=== PATIENT | female | born 1950 | race Caucasian/White ===

== ENCOUNTER 2020-04-14 12:09 | Emergency (ER) | payer MEDICARE, OTHER ==
[2020-04-14 13:51] LABS: BASO # 0.1 10*3/uL (0.0-0.1); BASO % 0.8 % (0.0-1.0); EOS # 1.4 10*3/uL (0.0-0.4); EOS % 18.6 % (1.0-4.0); LYMPH # 1.2 10*3/uL (1.3-4.4); LYMPH % 16.4 % (27.0-41.0); MEAN CELL VOLUME 86.4 fl (81.0-99.0); MEAN CORPUSCULAR HGB 27.4 pg (27.0-31.0); MEAN CORPUSCULAR HGB CONC 31.7 g/dl (33.0-37.0); MONO # 0.4 10*3/uL (0.1-1.0); MONO % 5.5 % (3.0-9.0); NEUT # 4.3 10*3/uL (2.3-7.9); NEUT % 58.3 % (47.0-73.0); PLATELET COUNT AUTOMATED 325 10*3/uL (130-400); RED BLOOD COUNT 4.05 10*6/uL (4.10-5.10); RED CELL DISTRI WIDTH 15.4 % (0-14.5); WHITE BLOOD COUNT 7.4 10*3/uL (4.8-10.8)
[2020-04-14 13:53] LABS: BILIRUBIN NEGATIVE (NEGATIVE); BLOOD NEGATIVE (NEGATIVE); CLARITY CLEAR (CLEAR); COLOR YELLOW (YELLOW); GLUCOSE NEGATIVE (NEGATIVE); KETONE TRACE (NEGATIVE); LEUKO ESTERASE NEGATIVE (NEGATIVE); NITRITE NEGATIVE (NEGATIVE); PH 7.5 (5.0-9.0); UROBILINOGEN 0.2 E.U./dl (0.2-1.0)
[2020-04-14 13:59] LABS: URINE AMPHETAMINES < 1000 (1000ng/ml); URINE BARBITURATES < 200 (200ng/ml); URINE BENZODIAZEPINES < 200 (200ng/ml); URINE CANNABINOIDS (THC) < 50 (50ng/ml); URINE COCAINE < 300 (300ng/ml); URINE METHADONE < 300 (300ng/ml); URINE OPIATES < 300 (300ng/ml); URINE PHENCYCLIDINE < 25 (25ng/ml)
[2020-04-14 14:00] LABS: EPITHELIAL CELLS 0-2; WBC 0-2 wbc/hpf (0-5)
[2020-04-14 14:06] LABS: ACETAMINOPHEN (TYLENOL) < 5.0 ug/ml (10-30); ALBUMIN 4.1 gm/dl (3.1-4.5); ALKALINE PHOSPHATASE 64 U/L (45-117); BUN 19 mg/dl (7-24); CHLORIDE 107 mmol/L (98-107); CREATININE 1.07 mg/dL (0.55-1.02); ETHYL ALCOHOL < 3.0 mg/dl (<3); POTASSIUM 3.8 mmol/L (3.5-5.1); SGOT/AST 16 IU/L (3-35); SGPT/ALT 26 U/L (12-78); SODIUM 139 mmol/L (136-145); TOTAL PROTEIN 7.9 gm/dL (6.4-8.2)
[2020-04-14] MEDS ORDERED: NOVOLOG10 ML SC (15:59)
[2020-04-14] MEDS ORDERED: ARICEPT5 M1 PO (16:00)
[2020-04-14] MEDS ORDERED: LANTUS SOL100 UNIT/1 SC (16:00)
[2020-04-14] MEDS ORDERED: ABILIFY5 MG PO (16:01)
[2020-04-14] MEDS ORDERED: ATORVASTATIN CA80 M1 PO (16:01)
[2020-04-14] MEDS ORDERED: OMEPRAZOLE MAGN20 MG PO (16:01)
[2020-04-14] MEDS ORDERED: LISINOPRIL30 MG PO (16:02)
[2020-04-14] MEDS ORDERED: FENOFIBRATE160 MG PO (16:03)
[2020-04-14] MEDS ORDERED: JANUVIA100 MG PO (16:03)
== END 2020-04-14 17:20 | disposition home health service (06) ==
LOC: ED 12:09
PROVIDERS: Physician Assistant
DX: Z02.89 Encounter for other administrative examinations (principal); I10 Essential (primary) hypertension; K21.9 Gastro-esophageal reflux disease without esophagitis; E11.9 Type 2 diabetes mellitus without complications; Z79.4 Long term (current) use of insulin; Z79.899 Other long term (current) drug therapy

== ENCOUNTER 2020-04-14 15:35 | Inpatient (IN) | payer MEDICARE, OTHER ==
[~2020-04-14] VITALS: Ht 160 cm; Wt 62.6 kg
[2020-04-14] MEDS ORDERED: NOVOLOG10 ML SC (15:59)
[2020-04-14] MEDS ORDERED: ARICEPT5 M1 PO (16:00)
[2020-04-14] MEDS ORDERED: LANTUS SOL100 UNIT/1 SC (16:00)
[2020-04-14] MEDS ORDERED: ATORVASTATIN CA80 M1 PO (16:01)
[2020-04-14] MEDS ORDERED: OMEPRAZOLE MAGN20 MG PO (16:01)
[2020-04-14] MEDS ORDERED: ABILIFY5 MG PO (16:01)
[2020-04-14] MEDS ORDERED: LISINOPRIL30 MG PO (16:02)
[2020-04-14] MEDS ORDERED: JANUVIA100 MG PO (16:03)
[2020-04-14] MEDS ORDERED: FENOFIBRATE160 MG PO (16:03)
--- NOTE | 2020-04-14 17:07 | NUR ---
PER RIZWANA GOMEZ RN, PT COVID TEST IS NEGATIVE.
[2020-04-14 17:34] VITALS: BP 149/82
[2020-04-14 17:36] VITALS: BP 149/82
--- NOTE | 2020-04-14 18:06 | NUR ---
ELIZABETH PEREZ a 69 year old F admitted via wheel chair from the EMERGENCY ROOM as a voluntary admission. Arrived on unit at 1725 . ALLERGIES: NKA . Vital signs are: [id number] 149/82-97%RA. The client signed the following forms with stated understanding: Authorization For The Release of Medical Information, Clothing List, Consent to Voluntary Admission and Hospitalization, Consent and Release Forms/Receipt of Rights, Acknowledgement of Advance Directive Information, Behavioral Health Consent Form, and Informed Consent of Medications. Admitted under the services of Dr. JET LINDSEY,[facility]. A search was conducted and hazardous articles were removed. Client was oriented to the unit. SCOTTIE VALENTE PT ALERT TO PERSON, PLACE, TIME AND SITUATION. PT VOICES FEELING DEPRESSED AND SAD. PT DENIES ANY SUICIDAL THOUGHTS OR BEHAVIORS, VERBALLY CONTRACTS FOR SAFETY AT THIS TIME. PT AMBUALTORY THROUGHOUT UNIT, GAIT STEADY. PT CONTINENT OF BOWEL AND BLADDER. NONE WOUNDS NOTED PER PT.
--- NOTE | 2020-04-14 18:11 | NUR ---
SPOKE WITH DR GOODMAN AT [phone] RE: CONSULT NEEDED FOR MEDICAL MANAGEMENT, PER DR BOOTH CONSULT UNDER DR WELLS.
[2020-04-14 20:00] VITALS: BP 148/76
--- NOTE | 2020-04-14 21:39 | NUR ---
Patient alert and oriented to person,place,time and stiuation. Mood calm,cooperative and pleasant. Patient states "I am very sad and depressed". Patient denies any SI/HI at this time. Patient is able to verbally contract for safety. Patient denies any hallucinations at this time. No overt s/s of any responding to internal stimuli noted. Patient compliant with HS medications without any difficulty. Provided 1:1 for emotional support. Plan to continue to encourage medication compliance. Also continue to provide emotional support. Will also continue to monitor moods/behaviors. Q 15 minute safety checks continued and maintained. See [facility] flowsheet for further documentation.
--- NOTE | 2020-04-15 00:18 | NUR ---
24 HR chart check completed.
--- NOTE | 2020-04-15 05:42 | NUR ---
Patient slept approx. 8 hours throughout shift. Q 15 minute safety checks continued and maintained.
[2020-04-15 06:56] LABS: THYROID STIM HORMONE (HS) 1.36 uIU/ml (0.358-4.75)
[2020-04-15 07:30] VITALS: BP 124/68
[2020-04-15 07:38] LABS: VITAMIN D, 25-HYDROXY 31.4 ng/mL (30-100)
--- NOTE | 2020-04-15 07:45 | NUR ---
DR LOERA CALLED IN AND STATED TO MAKE SURE PT EATS BREAKFAST DUE TO HER GLUCOSE BEING 68. ADVISED THAT PT IS CURRENTLY EATING.
--- NOTE | 2020-04-15 08:42 | NUR ---
DR WELLS ON UNIT TO ASSESS PT, UPDATE PROVIDED.
--- NOTE | 2020-04-15 10:49 | NUR ---
Patient expressed an overwhelming sense of sadness while meeting this AM. Pt spoke of her SA by OD two weeks ago. When asked, pt confirmed that she has struggled with depression throughout her adult life. Pt believes that the depression is linked to life stressors/losses. Discussed tools that pt has used in the past to assist in relieving pt's depressed mood. Pt stated that she feels that the medications need to begin working to relieve her depression first before anything else can help her. Pt is currently struggling with the of her close friend which took place a few weeks ago. Pt stated that it is particularly hard because the evening before her friend's , pt commented to her friend that her friend looked like . Pt stated that she regrets saying that. Discussed this further. Pt is current with Virginia Gay NP at [facility] and has Mariana Duran as her test case developer. Pt is not currently in counseling. Discussed this and pt is agreeable to resuming counseling services upon [facility] discharge.
--- NOTE | 2020-04-15 13:38 | NUR ---
P: PT ISOALTIVE TO SELF/ROOM THROUGHOUT THE DAY. PT MOOD IS DEPRESSED, STATING "I'M SOMEWHERE BETWEEN DEPRESSED AND HAPPY." I: PROVIDE EMOTIONAL SUPPORT AND 1:1 FOR PT TO VOICE FEELINGS, ENCOURAGE MED COMPLIANCE AND PROVIDE MED EDUCATION, ENCOURAGE GROUP PARTICIPATION AND SOCIALIZATION. R: PT ALERT TO PERSON, PLACE, TIME AND SITUATION. PT MED COMPLIANT WITHOUT DIFFICULTY, MED EDUCATION PROVIDED. PT CALM, MOOD REMAINS DEPRESSED. PT CONTINUES TO BE ISOLATIVE TO SELF/ROOM THROUGHOUT THE DAY, ONLY COMING OUT OF THE DINING ROOM FOR MALS. NO HALLUCINATIONS OR DELUSIONS NOTED. PT DENIES ANY SUICIDAL THOUGHTS OR BEHAVIORS AT THIS TIME, VERBALLY CONTRACTS FOR SAFETY. PT AMBULATORY THROUGHOUT UNIT, GAIT STEADY. PT CONTINENT OF BOWEL AND BLADDER. P: MONITOR PT BEHAVIORS ON Q15 MIN SAFETY CHECKS, ENCOURAGE MED COMPLIANCE AND PROVIDE MED EDUCATION, ENCOURAGE GROUP PARTICIPATION AND SOCIALIZATION, PROVIDE EMOTIONAL SUPPORT AND 1:1 FOR PT TO VOICE FEELINGS.
[2020-04-15 20:00] VITALS: BP 136/60
--- NOTE | 2020-04-15 20:00 | NUR ---
Patient sitting in dining room with peers, watching tv. Patient voices no complaints at this time. No s/s of distress noted; Resps even and unlabored on room air. Q15 minute checks maintained for safety.
--- NOTE | 2020-04-15 22:00 | NUR ---
P- DEPRESSED MOOD. ISOLATIVE TO SELF/ROOM. I- ASSESS MOOD, ORIENTATION, SI/HI, INTENT OR PLAN, HALLUCINATIONS, DELUSIONS, PARANOIA, OR PAIN. PROVIDE MEDICATIONS PRESCRIBED ON TIME WITH EDUCATION ON EACH. 1:1 THERAPEUTIC INTERACITON WITH EMOTIONAL SUPPORT AND VENTILATION OF FEELINGS PROVIDED. EDUCATE ON COPING SKILLS AND ENCOURAGE TO USE THEM WHEN NEEDED. OFFER HS SNACK. R- PATIENT IS ALERT AND ORIENTED X4. PATIENT STATES THAT SHE IS STILL DEPRESSED BUT IS GETTING BETTER. DENIES SI/HI, INTENT OR PLAN, HALLUCINATIONS OR PAIN. NO S/S OF INTERACTING WITH INTERNAL STIMULI. NO S/S OF PARANOIA OR DELUSIONAL THOUGHT PROCESS. NO S/S OF DISTRESS NOTED. RESPS EVEN AND UNLABORED ON ROOM AIR. PT MED COMPLIANT. PT STATES THAT SHE HAS USED COPING SKILLS IN THE PAST BUT HAS NOT BEEN USING THEM LATELY. PT STATES THAT SHE IS GOING TO START UTILIZING THEM AGAIN SO SHE CAN START FEELING BETTER. PT DID NOT WANT TO ELLABORATE ON WHY SHE WAS FEELING DEPRESSED. 1:1 INTERACTION EFFECTIVE, PROVIDED PT SPACE, LOW STIMULI ENVIRONMENT PROVIDED. P- ASSESS MOOD, ORIENTATION, SI/HI, INTENT OR PLAN, HALLUCINATIONS, DELUSIONS, PARANOIA OR PAIN EVERY SHIFT. PROVIDE MEDS ON TIME WITH EDUCATION ON EACH. 1:1 INTERACTION PROVIDED WHEN NECESSARY. ENCOURAGE TO KEEP UTILIZING COPING SKILLS. Q15 MINUTE CHECKS MAINTAINED FOR SAFETY.
--- NOTE | 2020-04-16 02:56 | NUR ---
24 HR chart check completed.
--- NOTE | 2020-04-16 06:43 | NUR ---
BEDSIDE BLOOD GLUCOSE 115
--- NOTE | 2020-04-16 06:47 | NUR ---
PATIENT MONITORED ON Q15 MINUTE SAFETY CHECKS THROUGHOUT THE NIGHT, NOTED TO HAVE SLEPT 7 HOURS. NO S/S OF DISTRESS NOTED, RESPS EVEN AND UNLABORED ON ROOM AIR.
[2020-04-16 07:36] VITALS: BP 136/63
--- NOTE | 2020-04-16 07:44 | NUR ---
Patient eating breakfast in dining room with peers. Respirations easy and regular. Vital signs stable. No overt distress. JOSSELIN HANNAH PHMNP-BC on unit to see pt at this time, update given.
--- NOTE | 2020-04-16 11:30 | NUR ---
P- Depressed mood, flat affect. Pt states she is starting to feel a little better. Slightly less isolative. I- Orientation, mood and behaviors assessed. Assessed pt for SI/HI, hallucinations, paranoia and/or delusions. Medications administered as per physician's orders. Assistance with ADL care provided as needed. Encouraged pt to participate in cabral milieu. R- Pt is alert and oriented x4. Memory appears to be intact. Resps easy and even on room air. Mood presents as depressed with flat affect. Speech is soft, coherent, able to make needs known without difficulty. Pt denies SI/HI, intent or plan. Pt denies hallucinations, no response to internal stimuli noted. No paranoia or delusions noted. Pt reports to staff she is starting to feel "a little bit better". Pt slightly less isolative this date, continues to remain in her room a majority of the time but did come out and sit at the table coloring with a female peer. Pt denies any pain/discomfort. Voices no complaints. Ambulatory with steady gait, independent with ADL care, displaying good appetite with adequate fluid intake. No distress noted. P- Plan to continue current treatment, continue to monitor mood and behaviors, provide appropriate reorientation, redirection and 1:1 as needed. Continue to encourage medication compliance as well as group attendance and participation.
--- NOTE | 2020-04-16 16:05 | NUR ---
Shift chart check completed.
[2020-04-16 20:00] VITALS: BP 130/56
--- NOTE | 2020-04-16 22:23 | NUR ---
Patient alert and oriented to person,place,time and stiuation. Mood calm,cooperative and pleasant. Patient isolative to self. Patient states "I am very sad and depressed". Patient denies any SI/HI at this time. Patient is able to verbally contract for safety. Patient denies any hallucinations at this time. No overt s/s of any responding to internal stimuli noted. Patient compliant with HS medications without any difficulty. Provided 1:1 for emotional support. Plan to continue to encourage medication compliance. Also continue to provide emotional support. Will also continue to monitor moods/behaviors. Q 15 minute safety checks continued and maintained. See [facility] flowsheet for further documentation.
--- NOTE | 2020-04-17 00:19 | NUR ---
24 HR chart check completed.
--- NOTE | 2020-04-17 05:14 | NUR ---
Patient slept approx. 7 hours throughout shift. Q 15 minute safety checks continued and maintained.
--- NOTE | 2020-04-17 07:55 | NUR ---
Patient eating breakfast in dining room with peers. Respirations easy and regular. Vital signs stable. No overt distress. [facility] to see pt at this time, update given.
[2020-04-17 07:57] VITALS: BP 133/73
--- NOTE | 2020-04-17 08:00 | NUR ---
on unit to see pt at this time, update given.
--- NOTE | 2020-04-17 09:00 | NUR ---
Treatment Plan meeting was held this a.m. with Dr. Anderson Via telephone, TESSY Garces RN, MULTIPLE DRUM SANDER HELPER-S and Hollock Maker. Plan for discharge Friday. Reported in Treatment Plan meeting that would like Pt. evaluated for SNF.
--- NOTE | 2020-04-17 09:00 | NUR ---
Treatment Plan meeting was held this a.m. with Dr. Anderson via telephone, TESSY Garces RN, HEAT TREAT FURNACE OPERATOR-S and Boom Cat Operator. Plan for discharge Friday or early next week. [facility] and Plan is for Pt. to return home with .
--- NOTE | 2020-04-17 15:39 | NUR ---
P- Depressed mood, flat affect, guarded, isolative/withdrawn I- Orientation, mood and behaviors assessed. Assessed pt for SI/HI, hallucinations, paranoia and/or delusions. Medications administered as per physician's orders. Encouraged pt to attend and participate in cabral milieu groups and activities. R- Pt is alert and oriented x4. Memory appears to be intact. Resps easy and even on room air. Mood appears depressed with flat affect. Pt appears guarded, very minimal staff and peer interactions noted. Pt continues to be withdrawn and isolated, pt keeps to herself and stays in her room laying down in bed a majority of the shift. This RN attempts to engage pt in conversation, pt states "I'm ok, just tired" and closes her eyes. Pt does report depression is getting better since admission. Pt denies SI/HI intent or plan. Pt denies hallucinations, no response to internal stimuli noted. No paranoia or delusions noted. Pt is medication compliant without difficulty. No distress noted. P- Plan to continue current treatment, continue to monitor mood and behaviors, provide appropriate reorientation, redirection and 1:1 as needed. Continue to encourage medication compliance as well as group attendance and participation.
[2020-04-17 20:00] VITALS: BP 131/61
--- NOTE | 2020-04-17 23:34 | NUR ---
P-ISOLATIVE, DEPRESSED MOOD I-REDIRECTION WITH 1:1 THEAPEUTIC INTERVENTIONS AND COMMUNICATION. EDUCATE AND ENCOURAGE MEDICATION COMPLIANCE R-MEDICATION COMPLIANT AT HS. PATIENT PROVIDED NOURISHMENT AND FLUIDS AT HS. PATIENT ISOLATIVE IN QUIET ROOM THROUGHOUT SHIFT. PATIENT WITH LIMITED INTERACTION WITH PEERS IN DINING AREA. PATIENT WITH NO HALLUCINATIONS OR DELUSIONS. PATIENT WITH NO HOMICIDAL IDEATIONS AND DENIES SUICIDAL IDEATIONS AT THIS TIME. P-CONTINUE TO ENCOURAGE MEDICATION COMPLIANCE, ENCOURAGE GROUP THERAPY WHILE AWAKE
--- NOTE | 2020-04-18 05:43 | NUR ---
PATIENT SLEPT 7 HOURS OF UNIMTERRUPTED SLEEP THROUGHOUT SHIFT. Q 15 MINUTE CHECKS MAINTAINED. 24 HR chart check completed.
[2020-04-18 07:54] VITALS: BP 121/60
--- NOTE | 2020-04-18 08:00 | NUR ---
and on unit to see pt at this time, update given. Made aware pt c/o upset stomach.
--- NOTE | 2020-04-18 09:15 | NUR ---
PRN Zofran 4mg SL given at this time for c/o nausea/upset stomach. Will monitor for medication effect.
--- NOTE | 2020-04-18 09:34 | NUR ---
Treatment Plan meeting was held this a.m. via telephone with Dr. Anderson, TESSY Garces RN and Camouflage Specialist. Plan for discharge Friday or Early Next week. Pt. will return home with her .
--- NOTE | 2020-04-18 11:56 | NUR ---
Pt states Zofran effective for relief of nausea.
--- NOTE | 2020-04-18 15:04 | NUR ---
P- Depressed mood, flat affect, isolative/withdrawn, pt c/o poor sleep I- Orientation, mood and behaviors assessed. Assessed pt for SI/HI, hallucinations, paranoia and/or delusions. Medications administered as per physician's orders. Encouraged pt to attend and participate in cabral milieu groups and activities. R- Pt is alert and oriented x4. Memory intact. Resps easy and even on room air. Mood remains depressed with flat affect. Speech is soft, coherent, able to make needs known without difficulty. Pt reports she is still feeling depressed but thinks it is "a little better" than when she came in. This RN asked pt if she felt like she was improving day by day, pt states "No, I think it's about the same". Pt reports difficulty sleeping, psychiatry team aware with medication adjustments made for tonight. Pt denies SI/HI, intent or plan. Pt denies hallucinations, no response to internal stimuli noted. No paranoia or delusions noted. Pt is medication compliant without difficulty. Pt is independent with ADLs, displays good appetite with adequate fluid intake. No further c/o nausea as of this time in the shift. Pt remains withdrawn and isolative to her room or quiet room, minimal staff and peer interactions noted. Pt is pleasant upon interaction with staff but does not spontaneously initiate interactions with staff or peers. No distress noted. P- Plan to continue current treatment, continue to monitor mood and behaviors, provide appropriate reorientation, redirection and 1:1 as needed. Continue to encourage medication compliance as well as group attendance and participation.
[2020-04-18 19:52] VITALS: BP 131/64
--- NOTE | 2020-04-18 22:04 | NUR ---
P-ISOLATIVE, DEPRESSED MOOD I-REDIRECTION WITH 1:1 THEAPEUTIC INTERVENTIONS AND COMMUNICATION. EDUCATE AND ENCOURAGE MEDICATION COMPLIANCE R-MEDICATION COMPLIANT AT HS. PATIENT PROVIDED NOURISHMENT AND FLUIDS AT HS. PATIENT ISOLATIVE IN ROOM THROUGHOUT SHIFT. PATIENT WITH LIMITED INTERACTION WITH PEERS IN DINING AREA. PATIENT WITH NO HALLUCINATIONS OR DELUSIONS. PATIENT WITH NO HOMICIDAL IDEATIONS AND DENIES SUICIDAL IDEATIONS AT THIS TIME. P-CONTINUE TO ENCOURAGE MEDICATION COMPLIANCE, ENCOURAGE GROUP THERAPY WHILE AWAKE
--- NOTE | 2020-04-19 06:00 | NUR ---
PATIENT SLEPT 7-8 HOURS OF UNINTERRUPTED SLEEP THROUGHOUT SHIFT. Q 15 MINUTE CHECKS MAINTAINED. 24 HR chart check completed.
[2020-04-19 07:34] VITALS: BP 123/55
--- NOTE | 2020-04-19 08:15 | NUR ---
ON UNIT TO ASSESS PATIENT.
--- NOTE | 2020-04-19 09:00 | NUR ---
Treatment Plan meeting was held via telephone with Dr. Anderson, TESSY Garces, KHUSHI, TREASURY MANAGER-S and Cake Knocker in attendance. Plan for discharge Friday with possible discharge next week with return home.
--- NOTE | 2020-04-19 13:08 | NUR ---
P- DEPRESSED, ISOLATIVE, GUARDED. I- ASSESS MOOD, ORIENTATION, SI/HI, HALLUCINATIONS, DELUSIONS, OR PAIN. PROVIDE MEDICATIONS ON TIME WITH EDUCATION ON EACH. 1:1 THERAPEUTIC INTERACTION WITH EMOTIONAL SUPPORT AND VENTILATION OF FEELINGS PROVIDED. ENCOURAGE TO ATTEND/PARTICIPATE IN GROUP THERAPIES FOR SOCIALIZATION AND EMOTIONAL SUPPORT. PROVIDE PT SPACE AND ENCOURAGE TO COME TO STAFF IF IN NEED OF ANYTHING. HAVE PT VERBALLY CONTRACT FOR SAFETY. PROVIDE AND EDUCATE ON UTILIZING COPING TECHNIQUES. ENCOURAGE FOOD AND FLUIDS. R- PT IS ALERT AND ORIENTED X4. DENIES SI/HI, INTENT OR PLAN, HALLUCINATIONS OR PAIN. NO S/S OF INTERACTING WITH INTERNAL STIMULI. NO S/S OF PARANOIA OR DELUSIONAL THOUGHT PROCESS. NO S/S OF DISTRESS NOTED, RESPS EVEN AND UNLABORED ON ROOM AIR. PT CONTRACTS FOR SAFETY. WHEN ASSESS PT, PT WAS VERY SHORT AND ONLY RESPONDED WITH "YES" OR "NO". 1:1 INTERACTION INEFFECTIVE, PT REMAINED GUARDED AND KEPT USING SHORT RESPONSES. PT STATED THAT SHE WOULD COME TO STAFF IF SHE NEEDED ANYTHING. MEDICATION COMPLIANT. PT REMAINS ISOLATIVE TO SELF, PT SPENT THE MORNING AFTER BREAKFAST IN THE QUIET ROOM LAYING ON THE SOFA, THEN AFTER LUNCH WENT TO HER ROOM. PT NAPS ON AND OFF. REMAINS GUARDED WHEN APPROACHED. GAIT STEADY WHILE AMBULATING. PT DID NOT ATTEND GROUP. P- ASSESS MOOD, ORIENTATION, SI/HI, INTENT OR PLAN, HALLUCINATIONS, DELUSIONS OR PAIN. ENCOURAGE TO UTILIZE COPING SKILLS. VERBAL CONTRACT FOR SAFETY. 1:1 INTERACTION PROVIDED. ENCOURAGE GROUP THERAPY. PROVIDE MEDS ON TIME WITH EDUCATION ON EACH. Q15 MINUTE CHECKS MAINTAINED FOR SAFETY.
[2020-04-19 20:00] VITALS: BP 120/60
--- NOTE | 2020-04-20 01:41 | NUR ---
P-ISOLATIVE, DEPRESSED MOOD,TEARFUL I-REDIRECTION WITH 1:1 THEAPEUTIC INTERVENTIONS AND COMMUNICATION. EDUCATE AND ENCOURAGE MEDICATION COMPLIANCE R-MEDICATION COMPLIANT AT HS. PATIENT PROVIDED NOURISHMENT AND FLUIDS AT HS. PATIENT ISOLATIVE IN ROOM THROUGHOUT SHIFT. PATIENT WITH LIMITED INTERACTION WITH PEERS IN DINING AREA. PATIENT TEAFUL IN DINING AREA WHEN ANOTHER PATIENT WAS NAME CALLING AND LEFT DINING AREA. THERAPEUTIC COMMUNICATION PROVIDED WITH EFFECTIVE RESULTS. PATIENT WITH NO HALLUCINATIONS OR DELUSIONS. PATIENT WITH NO HOMICIDAL IDEATIONS AND DENIES SUICIDAL IDEATIONS AT THIS TIME. P-CONTINUE TO ENCOURAGE MEDICATION COMPLIANCE, ENCOURAGE GROUP THERAPY WHILE AWAKE
--- NOTE | 2020-04-20 07:19 | NUR ---
PATIENT SLEPT 7 HOUR OF INTERRUPTED SLEEP THROUGHOUT SHIFT. Q 15 MINUTE CHECKS MAINTAINED. 24 HR chart check completed.
[2020-04-20 07:45] VITALS: BP 130/57
--- NOTE | 2020-04-20 08:04 | NUR ---
DR WELLS ON UNIT TO ASSESS PT, UPDATE PROVIDED.
--- NOTE | 2020-04-20 09:00 | NUR ---
Treatment Plan meeting was held via telephone with Dr. Justin RN and Public Welfare Worker. Plan for discharge Friday/Friday next week. Pt. will return home with her and [facility].
--- NOTE | 2020-04-20 12:58 | NUR ---
PT OBSERVED TO BE PACING UP AND DOWN HALLS, SAT WITH PT 1:1 IN ROOM TO DISCUSS PATIENT'S FEELINGS AND THOUGHT PROCESS. PT DISCUSSED WITH THIS NURSE THAT SHE IS HAVING DIFFICULTY SLEEPING AT NIGHT. STATES THAT SHE IS FEELING RESTLESS AND ANXIOUS, "LIKE I JUST DON'T KNOW WHERE TO GO OR WHAT TO DO". PT STATES HER DEPRESSED MOOD HAS IMPROVED SOMEWHAT, DENIES SI, INTENT OR PLAN. PT EDUCATED ON MEDICATIONS. PT ASKING FOR ATIVAN TO SEE IF IT WOULD ASSIST WITH ANXIETY, NONPHARMACOLOGICAL INTERVENTIONS UNABLE TO BE IMPLEMENTED D/T PATIENT'S OVERWHELMING FEELINGS OF RESTLESSNESS. ATIVAN 1MG PO GIVEN AT THIS TIME.
--- NOTE | 2020-04-20 15:38 | NUR ---
PT TOOK BRIEF NAP AFTER ATIVAN. STATES THAT SHE FEELS LIKE THE ATIVAN "TOOK THE EDGE OFF". REQUESTING ATIVAN PRIOR TO HS. EDUCATED ON NEW ORDER FOR ROZEREM TO BEGIN THIS EVENING, EDUCATED PT TO ALLOW TIME TO SEE IF ROZEREM WOULD WORK BEFORE ADMINISTERING ANOTHER ATIVAN. PT AGREEABLE TO TREATMENT PLAN AT THIS TIME.
[2020-04-20 20:00] VITALS: BP 126/57
--- NOTE | 2020-04-20 20:45 | NUR ---
P-DEPRESSION/ANXIETY, GUILT, ISOLATIVE I--CLIENT LAYING ON BED AWAKE. REVIEWED MEDICATION AND THEN GAVE THEM TO HER. ENCOURAGED HER TO GO TO DININGROOM FOR SNACK. DENIES S/I AT THIS TIME. ORIENTED X4 R--I AM OK. YES I WOULD LIKE A SNACK. CONTRACTED FOR SAFETY. NO QUESTIONED ASKED ABOUT MEDICATION P- MONITOR FOR CHANGES IN MOOD/BEHAVIOR. MONITOR Q 15 MIN AND PRN FOR SAFETY. ENCOURAGE CLIENT TO INTERACT WITH PEERS AND STAFF DURING THE DAY
--- NOTE | 2020-04-21 02:30 | NUR ---
24 HR chart check completed.
--- NOTE | 2020-04-21 07:26 | NUR ---
DR WELLS ON UNIT TO ASSESS PT, UPDATE PROVIDED.
[2020-04-21 07:27] VITALS: BP 112/60
--- NOTE | 2020-04-21 08:30 | NUR ---
Treatment Plan meeting was held this a.m. with TESSY Garces RN and Log Brander. Plan for discharge Next Week. Pt. will return home with .
--- NOTE | 2020-04-21 08:52 | NUR ---
SPOKE WITH PATIENT'S WHO STATES THAT PATIENT HAS A CLINICAL ASSOCIATE "TRAVIS GROW" WHO CAN BE REACHED AT [phone] IF NEEDED.
--- NOTE | 2020-04-21 10:52 | NUR ---
AM GROUP PT WAS PRESENT FOR PAINTING AND CRAFTING, ACTIVELY PARTICIPATED.
--- NOTE | 2020-04-21 14:14 | NUR ---
PT C/O INCREASED ANXIETY. NONPHARMACOLOGICAL INTERVENTIONS SUCH RESTING IN BED WITH LOW LIGHTING, SNACK, AND PACING ARE ALL INEFFECTIVE. PT REQUESTING ATIVAN IT HAS BEEN "THE ONLY THING THAT HAS WORKED" TO HELP REDUCE ANXIETY. ADMINISTERED ATIVAN 1MG PO PER PRN ORDER
--- NOTE | 2020-04-21 17:13 | NUR ---
pt states ativan effective, able to sit in group with peers, decreased restlessness.
[2020-04-21 20:00] VITALS: BP 122/58
--- NOTE | 2020-04-21 22:44 | NUR ---
ISOLATIVE WITH PEERS. DID COME TO DININGROOM FOR SNACK. DENIES SUICIDAL IDEATIONS AND CONTRACTS FOR SAFETY. REVIEWED MEDICATIONS DURING PASS. ALL QUESTIONS ANSWERED. WILL MONITOR FOR CHANGES IN MOOD/BEHAVIOR
--- NOTE | 2020-04-22 00:18 | NUR ---
24 HR chart check completed.
--- NOTE | 2020-04-22 05:50 | NUR ---
SLEPT APPROX 7 HOURS UNBROKEN PAST 2130PM
--- NOTE | 2020-04-22 05:51 | NUR ---
SLEPT APPROX 7 HOURS UNBROKEN PAST 2130PM
[2020-04-22 08:00] VITALS: BP 113/68
--- NOTE | 2020-04-22 09:58 | NUR ---
DR WELLS ON UNIT TO ASSESS PT, UPDATE PROVIDED.
--- NOTE | 2020-04-22 17:14 | NUR ---
A&O X4. DEPRESSED MOOD. ISOLATIVE AND WITHDRAWN. NO HALLUCINATIONS OR DELUSIONS NOTED. NO SI/HI. CONTRACTS FOR SAFETY. MEDICATION COMPLIANT. AMBULATORY WITH A STEADY GAIT. SEE [facility] FLOW SHEET FOR SPECIFIC MONITORING.
[2020-04-22 20:00] VITALS: BP 135/62
--- NOTE | 2020-04-22 20:34 | NUR ---
ISOLATIVE TO ROOM DUE TO PEER COUNTING. STATES CAUSING ANXIETY AND HEADACHE. STATES OTHERWISE DAY WAS OK AND FEELING BETTER. REVIEWED MEDICATIONS PRIOR TO DISPENSING. SNACK AND FLUIDS PROVIDED BY STAFF. GAIT STEADY. ORIENTED X4. WILL CONTINUE TO MONITOR FOR CHANGES IN MOOD/BEHAVIOR. MONITOR Q 15 MINUTES AND PRN FOR SAFETY.
--- NOTE | 2020-04-22 20:43 | NUR ---
POUNDING ON TABLES. DISTRUPTIVE WITH PEERS. UNABLE TO REDIRECT. REFUSING ALL PO MEDICATIONS. VISTARIL 75MG IM GIVEN. PO VISTARIL WASTED. WILL TRY OTHER MEDICATIONS IF HE RELAXES
--- NOTE | 2020-04-22 20:50 | NUR ---
ISOLATIVE TO ROOM. STATES INCREASED ANXIETY AND HEADACH DUE TO ONE PEER. EMOTIONAL SUPPORT PROVIDED. SHE DID COME TO DININGROOM FOR SNACK PROVIDED BY STAFF. REVIEWED MEDICATIONS PRIOR TO DISPENSING. WILL MONITOR FOR CHANGES IN MOOD/BEHAVIOR AND Q 15 MINUTES AND PRN FOR SAFETY
--- NOTE | 2020-04-23 00:34 | NUR ---
24 HR chart check completed.
--- NOTE | 2020-04-23 00:34 | NUR ---
24 HR chart check completed.
--- NOTE | 2020-04-23 05:51 | NUR ---
SLEPT WELL PAST 2200PM
--- NOTE | 2020-04-23 05:54 | NUR ---
SLEPT WELL PAST 2200PM
[2020-04-23 07:40] VITALS: BP 127/67
--- NOTE | 2020-04-23 08:00 | NUR ---
DR. WELLS ON UNIT TO ASSESS PATIENT.
--- NOTE | 2020-04-23 15:15 | NUR ---
Shift chart check completed.
--- NOTE | 2020-04-23 16:37 | NUR ---
NO ADVERSE MOODS OR BEHAVIORS NOTED THIS SHIFT. [facility] FL[facility] FOR SPECIFIC MONITORING.
[2020-04-23 19:43] VITALS: BP 135/53
--- NOTE | 2020-04-24 00:42 | NUR ---
PT REPORTS FEELING LESS DEPRESSED, REMAINS ISOLATIVE. STATES SHE IS STILL NOT SLEEPING VERY WELL. PROVIDED 1:1. EDUCATED ON HS MEDICATIONS, ADMINISTERED PER ORDERS. PT STATES SHE IS FEELING "A LITTLE BETTER". PT HAS BEEN RESTING QUIETLY IN ROOM. MEDICATION COMPLIANT. CONTINUE TO MONITOR Q15 MIN PER POLICY FOR SAFETY.
--- NOTE | 2020-04-24 06:05 | NUR ---
PT SLEPT 8 HOURS THIS SHIFT
[2020-04-24 07:30] VITALS: BP 127/52
--- NOTE | 2020-04-24 09:00 | NUR ---
Treatment Plan meeting was held this a.m. with Dr. Anderson, TESSY Garces, KHUSHI, ENVIRONMENTAL SCIENCE PROGRAM DIRECTOR-S and Business Analyst Manager. Plan for discharge Friday with return home and follow up appointments arranged.
[2020-04-24] MEDS ORDERED: MIRTAZAPINE15 M2 PO (09:20)
[2020-04-24] MEDS ORDERED: ARIPIPRAZOLE10 MG PO (09:20)
--- NOTE | 2020-04-24 09:20 | NUR ---
DR. WELLS UNIT TO ASSESS PATIENT.
--- NOTE | 2020-04-24 13:22 | NUR ---
PATIENT IS ALERT AND ORIENTED TO PERSON, PLACE, TIME AND SITUATION; ABLE TO VOICE NEEDS. MOOD IS LESS DEPRESSED. DENIES ANY HALLUCINATIONS, DELUSIONS, HI/SI OR PAIN. INTERACTIVE WITH STAFF AND OTHER PATIENTS. MEDICATION COMPLIANT WITH EDUCAITON PROVIDED. ONE ON ONE EDUCATION ON SELF ADMINISTRATIN OF LANTUS PEN. EFFECTIVE. INDEPENDENT WITH ACTIVITIES OF DAILY LIVING, CONTINENT OF BOWEL AND BLADDER. SET UP FOR MEAL INTAKES, INTAKE ARE GOOD WITH ADEQUATE FLUIDS. CONTINUE TO MONITOR MOOD, VOICED STATEMENT OF SI; PROVIDE ONE ON ONE FOR EMOTIONAL SUPPORT AND CONTRACT FOR SAFETY NEEDED.
--- NOTE | 2020-04-24 18:36 | NUR ---
Shift chart check completed.
[2020-04-24 19:25] VITALS: BP 123/72
--- NOTE | 2020-04-24 22:00 | NUR ---
PT STATES SHE IS FEELING BETTER AND READY TO GO HOME. PT NOTED TO BECOME OVERTLY ANXIOUS AND IRRITABLE DURING CALL WITH ATTEMPTING TO ARRANGE FOR TRANSPORTATION AT DISCHARGE. PT ABLE TO BE REDIRECTED, PROVIDED WITH EMOTIONAL SUPPORT. APPEARS TO BE EFFECTIVE AT THIS TIME. PT STATES THAT SHE HAS A FRIEND WHO WILL BE ABLE TO PICK HER UP 04/25/20 AT 1500. WILL CONTINUE TO MONITOR Q15 MIN PER POLICY.
--- NOTE | 2020-04-25 02:29 | NUR ---
The patient has no complaints and is resting comfortably. ALISSON KERR
--- NOTE | 2020-04-25 05:59 | NUR ---
PATIENT SLEPT APPROX 8 HOURS THROUGHOUT THE NIGHT, UNINTERRUPTED. NO DISTRESS NOTED.
[2020-04-25 07:39] VITALS: BP 143/63
--- NOTE | 2020-04-25 07:43 | NUR ---
DR WELLS ON UNIT TO ASSESS PT, UPDATE PROVIDED.
--- NOTE | 2020-04-25 08:30 | NUR ---
Treatment Plan meeting was held this a.m. with TESSY Garces, RN, AT, [facility] and [employer]. Plan for discharge today with return home. Pt. will follow with the [facility] Follow Up with Virginia Gay 05/03/20 2:30 p.m. and Primary Care Follow up with [facility] with Nurse Practitioner Irene Win 05/05/20 1:45 p.m. Family to provide Transportation with [employer] time after 3:00 p.m.
[2020-04-25] MEDS ORDERED: Vitamin D (50,000 UN PO (08:51)
[2020-04-25] MEDS ORDERED: LORAZEPAM0.5 MG PO (08:51)
[2020-04-25] MEDS ORDERED: ROZEREM8 MG PO (08:51)
--- NOTE | 2020-04-25 10:46 | NUR ---
PT ALERT TO PERSON, PLACE, TIME AND SITUATION. PT MED COMPLIANT WITHOUT DIFFICULTY, MED EDUCATION PROVIDED. PT CALM, MOOD IS STABLE. PT GOAL DIRECTED TOWARDS DISCHARGE. PT DENIES ANY SUICIDAL THOUGHTS. NO HALLUCINATIONS OR DELLUSIONS NOTED. PT AMBUALTORY THROOUGHOUT UNIT, GAIT STEADY. PT CONTINENT OF BOWEL AND BLADDER. PLAN IS TO MONITOR PT BEHAVIORS ON Q15 MIN SAFETY CHECKS, ENCOURAGE MED COMPLIANCE AND PROVIDE MED EDUCATION AND PREPARE FOR DISCHARGE.
--- NOTE | 2020-04-25 15:00 | NUR ---
PT DISCHARGED TO HOME VIA FRIEND'S PRIVATE CAR. PT BELONGINGS AND DC PAPERWORK SENT WITH PT.
--- NOTE | 2020-04-25 15:04 | NUR ---
Patient discharged home with today. Follow-up was scheduled with Virginia Gay NP at [facility] and with [facility]. While at [facility], pt's mood improved. Pt no longer isolated and was interactive with staff.
== END 2020-04-25 15:01 | disposition home or self-care (01) | DRG 885 ==
LOC: 3N 15:35
PROVIDERS: ADMIT Psychiatry & Neurology Psychiatry
DX: F33.2 Major depressive disorder, recurrent severe without psychotic features (principal); R45.851 Suicidal ideations; N18.3 Chronic kidney disease, stage 3 (moderate); E11.22 Type 2 diabetes mellitus with diabetic chronic kidney disease; R00.0 Tachycardia, unspecified; D64.9 Anemia, unspecified; I12.9 Hypertensive chronic kidney disease with stage 1 through stage 4 chronic kidney disease, or unspecified chronic kidney disease; E78.5 Hyperlipidemia, unspecified; G47.00 Insomnia, unspecified; Z98.49 Cataract extraction status, unspecified eye; Z96.1 Presence of intraocular lens; Z79.4 Long term (current) use of insulin; Z79.899 Other long term (current) drug therapy

== ENCOUNTER 2024-05-18 03:30 | Emergency (ER) | payer MEDICARE, OTHER ==
[~2024-05-18] VITALS: Wt 65.0 kg
[~2024-05-18 03:30] MED LIST: ABILIFY5 MG PO; ARICEPT5 M1 PO; ARIPIPRAZOLE10 MG PO; ATORVASTATIN CA80 M1 PO; FENOFIBRATE160 MG PO; JANUVIA100 MG PO; LANTUS SOL100 UNIT/1 SC; LISINOPRIL30 MG PO; LORAZEPAM0.5 MG PO; MIRTAZAPINE15 M2 PO; NOVOLOG10 ML SC; OMEPRAZOLE MAGN20 MG PO; ROZEREM8 MG PO; Vitamin D (50,000 UN PO
[2024-05-18 03:59] LABS: HEMATOCRIT 39.2 % (37.0-47.0); MEAN CELL VOLUME 99.2 fl (81.0-99.0); MEAN CORPUSCULAR HGB 27.1 pg (27.0-31.0); MEAN CORPUSCULAR HGB CONC 27.3 g/dl (33.0-37.0); MEAN PLATELET VOLUME 10.6 fl (9.6-12.3); PLATELET COUNT AUTOMATED 486 10*3/uL (130-400); RED BLOOD COUNT 3.95 10*6/uL (4.10-5.10); RED CELL DISTRI WIDTH 14.5 % (0-14.5)
[2024-05-18 04:02] LABS: MANUAL DIFF REFLEX YES
[2024-05-18 04:15] LABS: BILIRUBIN Negative (Negative); BLOOD 1+ (Negative); CLARITY Cloudy (Clear); COLOR Yellow (Yellow); GLUCOSE Negative (Negative); KETONE Trace (Negative); LEUKO ESTERASE 1+ (Negative); NITRITE Negative (Negative); UROBILINOGEN 0.2 E.U./dl (0.0-1.0)
[2024-05-18] MEDS ORDERED: SODIUM CHLORIDE 0.9% 1,000 ML IV ONE (04:15)
[2024-05-18 04:21] LABS: ALKALINE PHOSPHATASE 103 U/L (46-116); BUN 88 mg/dl (9-23); CHLORIDE 92 mmol/L (98-107); LIPASE 291 U/L (12-53); SGPT/ALT 29 U/L (5-49); TOTAL PROTEIN 6.8 gm/dL (6.0-8.0)
[2024-05-18 04:22] LABS: ETHYL ALCOHOL < 3.0 mg/dl (<3)
[2024-05-18 04:22] LABS: URINE AMPHETAMINES Negative (1000ng/ml); URINE BARBITURATES Negative (200ng/ml); URINE BENZODIAZEPINES Negative (200ng/ml); URINE CANNABINOIDS (THC) Negative (50ng/ml); URINE COCAINE Negative (300ng/ml); URINE METHADONE Negative (300ng/ml); URINE OPIATES Negative (300ng/ml); URINE PHENCYCLIDINE Negative (25ng/ml)
[2024-05-18 04:25] LABS: BASOPHILS 1 % (0-1); PLATELET SUFFICIENCY HIGH (NORMAL); TOTAL CELLS COUNTED 100 #CELLS
[2024-05-18] MEDS ORDERED: SODIUM CHLORIDE 0.9% 1,000 ML IV SCH (04:45)
[2024-05-18] MEDS ORDERED: DEXTROSE 5% 100 ML IV ONE (05:39)
[2024-05-18] MEDS ORDERED: EPINEPHrine Hydrochloride 1 MG/ML AMP ONE ×3 (05:44→06:27)
[2024-05-18] MEDS ORDERED: ETOMIDATE 20 MG/10 ML VIAL IV ONE ×2 (05:45→09:17)
[2024-05-18] MEDS ORDERED: Midazolam Hydrochloride 5 MG/5 ML VIAL IV ONE (05:45)
[2024-05-18] MEDS ORDERED: EPINEPHrine Hydrochloride 1 MG,IV 1 EA in SODIUM CHLORIDE 0.9% 250 ML IV SCH (05:55)
[2024-05-18] MEDS ORDERED: Vancomycin Hydrochloride 250 ML IV ONE (06:05)
[2024-05-18] MEDS ORDERED: Piperacillin Sodium/Tazobact 50 ML IV ONE (06:05)
[2024-05-18] MEDS ORDERED: NOREPINEPHRINE BITARTRATE/D5W 250 ML IV SCH (06:45)
[2024-05-18] MEDS ORDERED: NOREPINEPHRINE BITARTRATE/D5W 250 ML IV ONE (06:52)
[2024-05-18] MEDS ORDERED: SODIUM CHLORIDE 0.9% 250 ML BAG IV ONE (07:30)
[2024-05-18] MEDS ORDERED: SODIUM CHLORIDE 0.9% 500 ML IV ONE ×2 (07:59→08:18)
[2024-05-19] MEDS ORDERED: SODIUM CHLORIDE 0.9% 250 ML BAG IV ONE (07:17)
[2024-05-19] MEDS ORDERED: Lactated Ringer's Solution 1,000 ML BAG IV ONE (10:16)
[2024-05-19] MEDS ORDERED: DEXTROSE 5% 250 ML BAG IV ONE (10:16)
[2024-05-19] MEDS ORDERED: SODIUM BICARBONATE 50 MEQ/50 ML SYR IV ONE (10:16)
[2024-05-19] MEDS ORDERED: ATROPINE SULFATE 1 MG/10 ML SYR IV ONE (10:16)
== END 2024-05-18 07:37 | disposition short-term general hospital (02) ==
LOC: ED 03:30
PROVIDERS: Internal Medicine
DX: A41.9 Sepsis, unspecified organism (principal); R65.21 Severe sepsis with septic shock; N17.9 Acute kidney failure, unspecified; D72.829 Elevated white blood cell count, unspecified; D75.89 Other specified diseases of blood and blood-forming organs; G93.41 Metabolic encephalopathy; E87.8 Other disorders of electrolyte and fluid balance, not elsewhere classified; I10 Essential (primary) hypertension; F32.A Depression, unspecified; E11.9 Type 2 diabetes mellitus without complications; Z79.899 Other long term (current) drug therapy; Z79.4 Long term (current) use of insulin; Z98.890 Other specified postprocedural states; Z90.49 Acquired absence of other specified parts of digestive tract